=== PATIENT | female | born 1975 | race Caucasian/White ===

== ENCOUNTER 2018-03-06 12:50 | Emergency (ER) | payer MEDICAID, OTHER ==
[~2018-03-06] VITALS: Ht 167.6 cm; Wt 128.0 kg
[~2018-03-06 12:50] MED LIST: CLON0.1T PO; WELLTAB39 PO; XANA1TAB2 PO
[2018-03-06 12:59] VITALS: BP 147/98; PULSE 89; RESP 18; TEMP 98.5; O2SAT 97
[2018-03-06 13:27] LABS: BILIRUBIN, URINE NEG (NEG); BLOOD, URINE NEG (NEG); GLUCOSE,URINE NEG (NEG); KETONE, URINE NEG (NEG); NITRITE,URINE NEG (NEG); URINE COLOR OTHER (YELLW/STRAW); URINE LEUKOCYTE ESTERASE NEG (NEG)
[2018-03-06] MEDS ORDERED: ONDANSETRON HCL 4 MG/2 ML VIAL IVP ONE (13:30)
[2018-03-06] MEDS ORDERED: SODIUM CHLORIDE 0.9% FLUSH 10 ML FLUSH IV FLUSH PRN (13:30)
[2018-03-06] MEDS ORDERED: KETOROLAC TROMETHAMINE 30 MG/ML (IVP) VIAL IVP ONE (13:30)
[2018-03-06] MEDS ORDERED: SODIUM CHLOR 0.9% 1000 ML INJ 1,000 ML IV SCH (13:30)
[2018-03-06 13:31] LABS: SQUAMOUS EPITHELIAL CELL URINE 0-5 /hpf (0-5); WBC, URINE 0-2 /hpf (0-5)
--- NOTE | 2018-03-06 13:45 | PD ---
HPI Chief Complaint: Abdominal Pain Time Seen by Provider: 13:19 Travel History International Travel<30 days: No Contact w/Intl Traveler<30days: No Traveled to known affect area: No History of Present Illness HPI 42-year-old female complains of pain in the middle periumbilical distribution with radiation to the back. Pain has been on and off for quite some time. It is not constant. It is of moderate severity at least. There is a bulge in the lateral right abdomen. Patient reports lightheadedness at times. She reports vomiting and nausea. Sudden episodes of diaphoresis are reported. Decreased appetite is reported. Positive diarrhea. There is a history of diabetes and hypertension. Subjective fever reported. Patient has had no abnormal vaginal bleeding or discharge. Last saturation was only prior. No fever. PFSH Past Medical History Asthma: Yes Autoimmune Disease: No Blood Disorders: No Anxiety: Yes Depression: Yes Cancer: No Cardiovascular Problems: Yes Chemotherapy: No Diabetes: No Diminished Hearing: No Endocrine: No Glaucoma: No Genitourinary: No Hypertension: Yes Immune Disorder: No Musculoskeletal: No Neurologic: No Psychiatric: Yes Reproductive: Yes (POLYCYSTIC OVARIES) Respiratory: Yes Radiation Therapy: No Sickle Cell Disease: No Thyroid Disease: No ?: Not : 2 Ovarian Cysts: Yes (H/O POLYCYSTIC OVARIES) Tubal Ligation: Yes Past Surgical History Abdominal Surgery: No AICD: No Arteriovenous Shunt: No Cardiac Surgery: Yes Ear Surgery: No Endocrine Surgery: No Eye Surgery: No Genitourinary Surgery: No Gynecologic Surgery: No (TUBAL LIGATION 2000) Insulin Pump: No Joint Replacement: No Oral Surgery: No Pacemaker: No Thoracic Surgery: No Other Surgery: Yes Social History Alcohol Use: No Tobacco Use: Yes (2 PK/DAY) Substance Use: Yes (SMOKED MARIJUANA IN THE PAST) Allergies-Medications (Allergen,Severity, Reaction): Coded Allergies: animal dander (Unverified Allergy, Severe, stuffy nose, itching, difficulty breathing, 03/06/18) house dust (Unverified Allergy, Severe, stuffy nose, itching, difficulty breathing, 03/06/18) mold (Unverified Allergy, Severe, stuffy nose, itching, difficulty breathing, 03/06/18) grass pollen (Unverified Allergy, Mild, stuffy nose, itching, difficulty breathing, 03/06/18) Reported Meds & Prescriptions Reported Meds & Active Scripts Active Zofran Odt (Ondansetron Odt) 4 Mg Tab 4 Mg SL Q8HR PRN Xanax (Alprazolam) 1 Mg Tab 1 Mg PO BID Wellbutrin Xl 24 HR (Bupropion HCl) 300 Mg Tab 300 Mg PO DAILY Clonidine (Clonidine HCl) 0.1 Mg Tab 0.1 Mg PO 1 Q AM & 2 Q HS Review of Systems Except as stated in HPI: all other systems reviewed are Neg General / Constitutional: No: Fever, Chills Physical Exam Narrative GENERAL: 42-year-old female pleasant well-nourished well-developed no acute distress Vital Signs Date Time Temp Pulse Resp B/P (MAP) Pulse Ox O2 Delivery O2 Flow Rate FiO2 03/06/18 12:59 98.5 89 18 147/98 (114) 97 SKIN: Warm and dry. HEAD: Atraumatic. Normocephalic. EYES: Pupils equal and round. No scleral icterus. No injection or drainage. ENT: No nasal bleeding or discharge. Mucous membranes pink and moist. NECK: Trachea midline. No JVD. CARDIOVASCULAR: Regular rate and rhythm. RESPIRATORY: No accessory muscle use. Clear to auscultation. Breath sounds equal bilaterally. GASTROINTESTINAL: There is a palpable mass in the lateral right abdomen which is very tender. Exam is somewhat limited by habitus, BMI 45.5. Abdomen is soft. Left abdomen is nontender. MUSCULOSKELETAL: Extremities without clubbing, cyanosis, or edema. No obvious deformities. NEUROLOGICAL: Awake and alert. No obvious cranial nerve deficits. Motor grossly within normal limits. Five out of 5 muscle strength in the arms and legs. Normal speech. PSYCHIATRIC: Appropriate mood and affect; insight and judgment normal. Data Data Last Documented VS Vital Signs Date Time Temp Pulse Resp B/P (MAP) Pulse Ox O2 Delivery O2 Flow Rate FiO2 03/06/18 14:56 16 97 Room Air 03/06/18 12:59 98.5 89 147/98 (114) Orders Orders Urinalysis - C+S If Indicated (03/06/18 13:10) Ed Urine Pregnancytest Poc (03/06/18 13:10) Complete Blood Count With Diff (03/06/18 13:30) Comprehensive Metabolic Panel (03/06/18 13:30) Lipase (03/06/18 13:30) Ct Abd/Pel W Iv Contrast(Rout) (03/06/18 13:30) Iv Access Insert/Monitor (03/06/18 13:30) Ecg Monitoring (03/06/18 13:30) Oximetry (03/06/18 13:30) Ondansetron Inj (Zofran Inj) (03/06/18 13:30) Sodium Chlor 0.9% 1000 Ml Inj (Ns 1000 M (03/06/18 13:30) Sodium Chloride 0.9% Flush (Ns Flush) (03/06/18 13:30) Ketorolac Inj (Toradol Inj) (03/06/18 13:30) Iohexol 350 Inj (Omnipaque 350 Inj) (03/06/18 14:46) Ed Discharge Order (03/06/18 15:03) Labs Laboratory Tests Test 03/06/18 13:15 03/06/18 13:55 Urine Collection Type CLEAN CATCH Urine Color OTHER Urine Turbidity CLEAR Urine pH 6.0 Urine Specific Gerry LESS/EQUAL 1.005 Urine Protein NEG mg/dL Urine Glucose (UA) NEG mg/dL Urine Ketones NEG mg/dL Urine Occult Blood NEG Urine Nitrite NEG Urine Bilirubin NEG Urine Urobilinogen 0.2 MG/DL Urine Leukocyte Esterase NEG Urine WBC 0-2 /hpf Urine Squamous Epithelial Cells 0-5 /hpf Microscopic Urinalysis Comment CULT NOT INDICATED Urine Collection Time 13:15 White Blood Count 10.9 TH/MM3 Red Blood Count 4.96 MIL/MM3 Hemoglobin 12.7 GM/DL Hematocrit 38.7 % Mean Corpuscular Volume 78.1 FL Mean Corpuscular Hemoglobin 25.5 PG Mean Corpuscular Hemoglobin Concent 32.7 % Red Cell Distribution Width 16.0 % Platelet Count 396 TH/MM3 Mean Platelet Volume 8.5 FL Neutrophils (%) (Auto) 63.6 % Lymphocytes (%) (Auto) 28.8 % Monocytes (%) (Auto) 5.2 % Eosinophils (%) (Auto) 1.8 % Basophils (%) (Auto) 0.6 % Neutrophils # (Auto) 6.9 TH/MM3 Lymphocytes # (Auto) 3.1 TH/MM3 Monocytes # (Auto) 0.6 TH/MM3 Eosinophils # (Auto) 0.2 TH/MM3 Basophils # (Auto) 0.1 TH/MM3 CBC Comment DIFF FINAL Differential Comment Blood Urea Nitrogen 10 MG/DL Creatinine 0.92 MG/DL Random Glucose 137 MG/DL Total Protein 8.4 GM/DL Albumin 3.7 GM/DL Calcium Level 9.5 MG/DL Alkaline Phosphatase 80 U/L Aspartate Amino Transf (AST/SGOT) 35 U/L Alanine Aminotransferase (ALT/SGPT) 25 U/L Total Bilirubin 0.4 MG/DL Sodium Level 136 MEQ/L Potassium Level 4.8 MEQ/L Chloride Level 101 MEQ/L Carbon Dioxide Level 29.1 MEQ/L Anion Gap 6 MEQ/L Estimat Glomerular Filtration Rate 67 ML/MIN Lipase 345 U/L [facility] Medical Decision Making Medical Screen Exam Complete: Yes Emergency Medical Condition: Yes Differential Diagnosis Constipation, Gastritis, Acute Cholecystitis, Biliary Colic, Pancreatitis, BLANCO , Hepatitis, Bowel Obstruction, Cystitis, Mesenteric Ischemia, AAA, Appendicitis , Renal Stone/Hydronephrosis, GERD, perforated viscous Narrative Course CBC & BMP Diagram 03/06/18 13:55 Total Protein 8.4 H, Albumin 3.7, Calcium Level 9.5, Alkaline Phosphatase 80, Aspartate Amino Transf (AST/SGOT) 35, Alanine Aminotransferase (ALT/SGPT) 25, Total Bilirubin 0.4 Lipase 345 UA: No UTI CT abdomen and pelvis reveals cholelithiasis, hepatic steatosis The patient is resting comfortably and feels better, is alert and in no distress. The patients results and examination findings were discussed. The repeat examination is unremarkable and benign. The history, exam, diagnostic testing, and current condition do not suggest any significant pathology to warrant further testing, continued ED treatment, admission, or surgical evaluation at this point. The vital signs have been stable. The patient does not have uncontrollable pain, intractable vomiting, or other significant symptoms. The patient's condition is stable and appropriate for discharge. The patient will pursue further outpatient evaluation with a primary care physician or other designated or consulting physician as indicated in the discharge instructions. The patient expressed understanding and was agreeable with this plan. Diagnosis Primary Impression: Steatosis of liver Additional Impression: Cholelithiasis Qualified Codes: K80.20 - Calculus of gallbladder without cholecystitis without obstruction Referrals: Evert Taylor MD call for appointment Call for "cholelithiasis" (gallbladder stones) Med/Other Pt SpecificInfo: No Change to Meds Scripts Ondansetron Odt (Zofran Odt) 4 Mg Tab 4 MG SL Q8HR Y for Nausea/Vomiting, #10 TAB 0 Refills Prov: Satya Morataya MD 03/06/18 Disposition: 01 DISCHARGE HOME Satya Morataya MD March 06, 2018 13:45
[2018-03-06 14:02] LABS: AUTOMATED NEUTROPHIL # 6.9 TH/MM3 (1.8-7.7); BASOPHIL # 0.1 TH/MM3 (0-0.2); BASOPHIL % 0.6 % (0.0-2.0); EOSINOPHIL # 0.2 TH/MM3 (0-0.4); EOSINOPHIL % 1.8 % (0.0-4.0); HEMATOCRIT 38.7 % (35.0-46.0); HEMOGLOBIN 12.7 GM/DL (11.6-15.3); LYMPH % 28.8 % (9.0-44.0); LYMPHOCYTE # 3.1 TH/MM3 (1.0-4.8); MEAN CELL VOLUME 78.1 FL (80.0-100.0); MEAN CORPUSCULAR HEMOGLOBIN 25.5 PG (27.0-34.0); MEAN CORPUSCULAR HGB CONC 32.7 % (32.0-36.0); MEAN PLATELET VOLUME 8.5 FL (7.0-11.0); MONO % 5.2 % (0.0-8.0); MONOCYTE # 0.6 TH/MM3 (0-0.9); NEUT % 63.6 % (16.0-70.0); PLATELET COUNT 396 TH/MM3 (150-450); RED BLOOD COUNT 4.96 MIL/MM3 (4.00-5.30); WHITE BLOOD COUNT 10.9 TH/MM3 (4.0-11.0)
[2018-03-06 14:12] LABS: CHLORIDE 101 MEQ/L (98-107); SODIUM (NA) 136 MEQ/L (136-145)
[2018-03-06 14:15] LABS: CALCIUM 9.5 MG/DL (8.5-10.1)
[2018-03-06 14:16] LABS: ALBUMIN 3.7 GM/DL (3.4-5.0); BICARBONATE 29.1 MEQ/L (21.0-32.0); BLOOD UREA NITROGEN 10 MG/DL (7-18); GLUCOSE,RANDOM 137 MG/DL (74-106)
[2018-03-06 14:19] LABS: ALT (GPT) 25 U/L (10-53); AST (GOT) 35 U/L (15-37); CREATININE 0.92 MG/DL (0.50-1.00); GLOMERULAR FILTRATION RATE 67 ML/MIN (>89)
[2018-03-06 14:20] LABS: TOTAL BILIRUBIN ADULT 0.4 MG/DL (0.2-1.0); TOTAL PROTEIN 8.4 GM/DL (6.4-8.2)
[2018-03-06 14:21] LABS: ALKALINE PHOSPHATASE 80 U/L (45-117)
[2018-03-06] MEDS ORDERED: IOHEXOL 350 MG/ML 10 ML VIAL (for RAD DIAG) IVCONTRAST ONE (14:46)
[2018-03-06 14:56] VITALS: RESP 16; O2SAT 97
--- NOTE | 2018-03-06 15:00 | RADRPT ---
EXAM DATE/TIME: 03/06/2018 14:34 [facility] COMPARISON: No previous studies available for comparison. INDICATIONS : Periumbilical and right abdominal pain x 1 month. Nausea, vomiting and diarrhea x 2 days. IV CONTRAST: 90 cc Omnipaque 350 (iohexol) IV ORAL CONTRAST: No oral contrast ingested. RADIATION DOSE: 22.37 CTDIvol (mGy) MEDICAL HISTORY : Hypertension. Diabetes mellitus type 2. Asthma. SURGICAL HISTORY : Tubal ligation. ENCOUNTER: Initial ACUITY: 1 month PAIN SCALE: 7/10 LOCATION: Right lower quadrant TECHNIQUE: Volumetric scanning of the abdomen and pelvis was performed. Using automated exposure control and ad justment of the mA and/or kV according to patient size, radiation dose was kept as low as reasonably achievable to obtain optimal diagnostic quality images. DICOM format image data is available electro nically for review and comparison. FINDINGS: LOWER LUNGS: The visualized lower lungs are clear. LIVER: Mild diffusely decreased hepatic density without evidence for volume loss or intrahepatic ductal dila tation or mass. Small gallstone in the gallbladder which otherwise appears unremarkable by CT. SPLEEN: Normal size without lesion. PANCREAS: Within normal limits. KIDNEYS: Normal in size and shape. There is no mass, stone or hydronephrosis. ADRENAL GLANDS: Within normal limits. VASCULAR: There is no aortic aneurysm. BOWEL/MESENTERY: The stomach, small bowel, and colon demonstrate no acute abnormality. Appendix is visualized and nor mal in appearance. There is no free intraperitoneal air or fluid. ABDOMINAL WALL: Within normal limits. RETROPERITONEUM: There is no lymphadenopathy. BLADDER: Decompressed. REPRODUCTIVE: Prominent endometrium. INGUINAL: There is no lymphadenopathy or hernia. MUSCULOSKELETAL: Within normal limits for patient age. CONCLUSION: 1. Prominent endometrium which may be due to phase of menstrual cycle. 2. Normal appendix. 3. Cholelithiasis. 4. Hepatic steatosis. Amarjit Soto MD on March 06, 2018 at 14:53 Board Certified Radiologist. This report was verified electronically.
[2018-03-06] MEDS ORDERED: ZOFR4TAB3 SL (15:10)
[2018-03-06 15:26] VITALS: BP 128/71; PULSE 71; RESP 18; O2SAT 97
== END 2018-03-06 15:43 | disposition home or self-care (01) ==
LOC: PHED 12:50
DX: K76.0 Fatty (change of) liver, not elsewhere classified (principal); K80.20 Calculus of gallbladder without cholecystitis without obstruction; E11.9 Type 2 diabetes mellitus without complications; I10 Essential (primary) hypertension; J45.909 Unspecified asthma, uncomplicated; F41.9 Anxiety disorder, unspecified; F32.9 Major depressive disorder, single episode, unspecified; F17.200 Nicotine dependence, unspecified, uncomplicated
CPT/HCPCS: 74177; 80053; 81001; 83690; 84703; 85025; 96361; 96374; 96375; 99284; J1885; J2405; J7030; Q9967